=== PATIENT | male | born 1955 | race Caucasian/White ===

== ENCOUNTER → 2016-06-19 | Outpatient (CLI) | payer BC ==
[~2016-06-19] MED LIST: ASPI325T32 PO; HYDR-3498 PO; TRAM50TA2 PO
--- NOTE | 2016-06-19 10:15 | RADRPT ---
PROCEDURE: XR Right hip and pelvis. CLINICAL INDICATION: Right hip pain. Pelvic pain. Postop. TECHNIQUE: Three views. Frontal pelvis. Frontal and lateral right hip. COMPARISON: 03/26/2016. FINDINGS: There is no fracture or dislocation. The soft tissues are normal. There is a right hip total arthroplasty which appears satisfactory. There are severe degenerative changes of the left hip with joint space narrowing, osteophytes, subar ticular sclerosis, and deformity. There is no lytic or blastic lesion. The sacroiliac joints are unremarkable. IMPRESSION: 1. Satisfactory postoperative appearance of the right hip. 2. Severe degenerative changes of the left hip. RPTAT: QQ .Joseluis Caldwell MD, MD Date Time Electronically viewed and signed by .Joseluis Caldwell MD, on 06/19/2016 10:15 .R/
== END | disposition home or self-care (01) ==
LOC: HKI 08:53
PROVIDERS: ATTEND Orthopaedic Surgery
DX: Z47.1 Aftercare following joint replacement surgery (principal); M16.11 Unilateral primary osteoarthritis, right hip; Z96.641 Presence of right artificial hip joint
CPT/HCPCS: 73502; G0463

== ENCOUNTER → 2016-10-23 | Outpatient (CLI) | payer OTHER ==
--- NOTE | 2016-10-23 10:05 | RADRPT ---
PROCEDURE: XR pelvis/right hip. CLINICAL INDICATION: Hip pain TECHNIQUE: AP pelvis/AP and lateral right hip views performed. COMPARISON: No prior studies are available for comparison. FINDINGS: There is a right total hip replacement. There is no evidence of loosening of the prosthesis. No hard rios failure is identified. 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 There is severe left hip osteoarthrosis. This is associated with joint space narrowing, subchondral sclerosis, subchondral cyst formation and osteophytosis. There is normal osseous mineralization. N o fractures or osseous lesions are identified. The soft tissues are unremarkable. IMPRESSION: Right total hip replacement. Severe left hip osteoarthrosis. RPTAT: HGDB .Cliff Rosa MD, MD Date Time Electronically viewed and signed by .Cliff Rosa MD, on 10/23/2016 10:05 .B/
== END | disposition home or self-care (01) ==
LOC: HKI 09:02
PROVIDERS: ATTEND Orthopaedic Surgery
DX: Z09 Encounter for follow-up examination after completed treatment for conditions other than malignant neoplasm (principal); Z96.641 Presence of right artificial hip joint; Z85.828 Personal history of other malignant neoplasm of skin; M16.12 Unilateral primary osteoarthritis, left hip
CPT/HCPCS: 73502; G0463